=== PATIENT | female | born 1955 | race Caucasian/White ===

== ENCOUNTER 2019-05-10 16:51 | Emergency (ER) | payer BC ==
[2019-05-10] MEDS ORDERED: ASPIRIN 325 MG TABLET PO ONE (17:33)
--- NOTE | 2019-05-10 17:33 | Emergency Department Record ---
History of Present Illness - General Chief Complaint: Chest Pain Stated Complaint: CHEST PRESSURE Time Seen by Provider: 05/10/19 17:28 Source: Patient Mode of Arrival: Ambulatory Limitations: No limitations - History of Present Illness Initial Comments: The patient is here due to mild chest pressure which started at 2pm when she was at home. She was doing some dishes when she noticed the onset. The pressure is retrosternal and nonradiating. It is not associated with nausea, vomiting, SOB, MAGDIEL, or sweating. The patient has no hx of similar issues and presently the pressure has resolved. She has had no recent illnesses or injuries and her only cardiac risk factor is HTN. Complaint: Chest pain Onset/Timin -: Hour(s) Onset: During rest Pain Location: Epigastric Pain Radiation: None Severity scale (1-10): 3 Quality: Other Consistency: Intermittent Improves With: Nothing Worsens With: Nothing Treatments Prior to Arrival: None - Related Data Allergies Allergy/AdvReac Type Severity Reaction Status Date / Time aloe vera Allergy Severe HIVES Verified 05/10/19 17:40 levofloxacin [From Levaquin] Allergy Severe VOMITING Verified 05/10/19 17:40 Penicillins Allergy Severe SWELLING Verified 05/10/19 17:40 OF THE LIPS Sulfa (Sulfonamide Allergy Severe SWELLING Verified 05/10/19 17:40 Antibiotics) OF THE LIPS Travel Screening - Travel/Exposure Within Last 30 Days Have you traveled within the last 30 days?: No Review of Systems Constitutional: Denies: Chills, Fever Eyes: Denies: Eye discharge ENT: Denies: Congestion Respiratory: Denies: Cough, Dyspnea Cardiovascular: Denies: Arrhythmia, Chest pain Endocrine: Denies: Fatigue Gastrointestinal: Denies: Nausea Genitourinary: Denies: Dysuria Musculoskeletal: Denies: Arthralgia Skin: Denies: Bruising Past Medical History - SOCIAL HISTORY Smoking Status: Former smoker Alcohol Use: Rare Drug Use: None - RESPIRATORY Hx Respiratory Disorders: No - CARDIOVASCULAR Hx Cardio Disorders: Yes Hx Hypertension: Yes Comment:: One side is larger - NEURO Hx Neuro Disorders: Yes Hx Headaches: Yes - GI Hx GI Disorders: No - Hx Genitourinary Disorders: Yes Hx Kidney Stones: Yes - ENDOCRINE Hx Endocrine Disorders: No - MUSCULOSKELETAL Hx Musculoskeletal Disorders: Yes Hx Arthritis: Yes - PSYCH Hx Psych Problems: No - HEMATOLOGY/ONCOLOGY Hx Hematology/Oncology Disorders: No Family Medical History Any Significant Family History?: No Physical Exam - General General Appearance: Alert, Oriented x3, Cooperative, No acute distress - Head Head exam: Atraumatic, Normocephalic, Normal inspection - Eye Eye exam: Normal appearance, PERRL - ENT Throat exam: Normal inspection. negative: Tonsillar erythema, Tonsillar exudate - Neck Neck exam: Normal inspection, Full ROM. negative: Tenderness - Respiratory Respiratory exam: Normal lung sounds bilaterally. negative: Respiratory distress - Cardiovascular Cardiovascular Exam: Regular rate, Normal rhythm, Normal heart sounds. negative: Diastolic murmur, Systolic murmur - GI/Abdominal GI/Abdominal exam: Soft, Normal bowel sounds. negative: Tenderness - Extremities Extremities exam: Normal inspection, Full ROM, Normal capillary refill. nega tive: Tenderness - Neurological Neurological exam: Alert, Normal gait. negative: Abnormal gait, Motor sensory deficit Course Vital Signs 05/10/19 16:56 Pulse Rate 77 Respiratory 20 Rate Blood Pressure 143/72 Pulse Ox 98 - Reevaluation(s) Reevaluation #1: The patient is doing very well at this time. She has had no further chest pressure while she has been here in the ER. Her workup has been WNL's with no specific cause found for her symptoms. Due to her age and risk factors I did recommend an admission for a cardiac workup. The patient is declining that recommendation. I did discuss the risks of leaving AMA which are that she could go home and have an [place], stroke, become disabled and even . The patient understands and accepts the risks. She presently has proper decision making capacity. I did discuss the need to see her PCP CHELLE for further evaluation and she is to return to the ER for any return of the symptoms or any worsening i ssues. 05/10/19 18:37 Medical Decision Making - Data Complexity MDM Data: Labs Ordered and/or Reviewed, X-Ray Ordered and/or Reviewed, EKG Ordered and/or Reviewed - Lab Data Result diagrams: 05/10/19 17:40 05/10/19 17:40 - EKG Data -: EKG Interpreted by Me (NSR at 73, prob old IWMI, poor R wave progression anterior wall.) - Radiology Data Radiology results: Report reviewed (CXR: Neg per Rad.) Disposition Disposition: Discharge Clinical Impression: Pressure in chest Disposition: Against Medical Advice Condition: (2) Stable Instructions: Chest Pain (ED) Additional Instructions: Please continue your regular medicines and take a full dose Aspirin daily until you see your doctor next week. Return to the ER for any return of the symptoms or any worsening issues. Forms: Patient Portal Access Time of Disposition: 18:42 Quality - Quality Measures Quality Measures: N/A - Blood Pressure Screening View Details: Yes Does Patient Have Any of the Following: Active Dx of HTN Blood Pressure Classification: Hypertensive Reading Systolic Measurement: 143 Diastolic Measurement: 72 Screening for High Blood Pressure: Patient Exclusion, Hx of HTN [[id number]]
[2019-05-10 17:49] LABS: ABSOLUTE NEUTROPHIL COUNT 4.96; BASO % 0.3 % (0-6); EOS % 3.1 % (0-6); GRAN % 69.7 % (47-80); HEMATOCRIT 41.2 % (35.0-47.0); LYMPH % 18.8 % (16-45); MEAN CELL VOLUME 83.4 fl (81-97); MEAN CORPUSCULAR HEMOGLOBIN 26.3 pg (27-33); MEAN CORPUSCULAR HGB CONC 31.6 g/dl (32-36); MEAN PLATELET VOLUME 9.3 fl (7.4-10.4); MONO % 8.1 % (0-9); PLATELET COUNT 426 K/uL (130-400); RED BLOOD COUNT 4.94 M/uL (3.80-5.40); RED CELL DISTRIBUTION WIDTH 14.7 % (11.5-14.5); WHITE BLOOD COUNT W/O DIFF 7.1 K/uL (4.2-12.2)
[2019-05-10 17:55] LABS: BLOOD UREA NITROGEN 19 mg/dL (8-23); CREATININE 0.6 mg/dL (0.5-0.9); EST GLOMERULAR FILTRATION RATE > 60 mL/min
[2019-05-10 17:56] LABS: INR 0.9; PARTIAL THROMBOPLASTIN TIME 25.8 SECONDS (24.5-39.1); PROTHROMBIN TIME (PATIENT) 9.7 SECONDS (9.5-12.1); TOTAL PROTEIN 7.1 g/dL (6.6-8.7)
[2019-05-10 17:58] LABS: GLUCOSE,RANDOM 112 mg/dL (74-109)
[2019-05-10 18:01] LABS: ALB/GLOB RATIO 1.3 (1.1-1.8); ALKALINE PHOSPHATASE 107 U/L (35-104); ALT/SGPT 20 U/L (<33); AST/SGOT 17 U/L (10.0-35.0)
[2019-05-10] MEDS ORDERED: POTASSIUM CHLORIDE 20 MEQ TABLET PO ONE (18:12)
--- NOTE | 2019-05-10 18:24 | RADIOLOGY REPORT ---
EXAMINATION: CHEST 2 VIEWS EXAM DATE: 05/10/2019 6:18 PM TECHNIQUE: Frontal and lateral views of the chest INDICATION: CP COMPARISON: 04/03/2019 FINDINGS: The cardiomediastinal silhouette is normal. The lungs are clear. No evidence of pneumonia or pulmonary edema. No pneumothorax or pleural effusion. The bones are unremarkable. IMPRESSION: No acute pulmonary process. Dictated by: Alexis Gallagher MD on 05/10/2019 6:18 PM. .
== END 2019-05-10 19:04 | disposition left against medical advice (07) ==
LOC: ER 16:51
DX: R07.89 Other chest pain (principal); R10.13 Epigastric pain; I10 Essential (primary) hypertension; Z87.891 Personal history of nicotine dependence
CPT/HCPCS: 71046; 80053; 84484; 85025; 85610; 85730; 93005; 93010; 99284